=== PATIENT | female | born 1940 | race Caucasian/White ===

== ENCOUNTER 2016-12-22 20:19 | Emergency (ER) | payer MEDICARE ==
[~2016-12-22 20:19] MED LIST: ANTIVERT PO; ASPIRIN ENTERI325 M1 DOB; ASPIRIN81 MG PO; ATIVAN0.5 MG PO; AUGMENTIN PO; BACTROBAN22 GM TOP; CALCIUM; CALCIUM + D 6001 TA1 PO; CALCIUM 600 MG PO; ECOTRIN325 MG; ECOTRIN81 M1 PO; EFFIENT10 MG PO; HYDRALAZINE HC100 MG PO; HYDROCHLOROTHIA25 MG PO; IBUPROFEN PO; LEVOTHYROXINE50 MCG PO; LIPITOR PO; LISINOPRIL PO; MACROBID100 MG PO; METOPROLOL TART25 MG PO; PERCOCET PO; PHENERGAN PO; PLAVIX PO; PREMARIN PO; PREVASTATIN PO; PYRIDIUM PO; SYNTHROID PO; ULTRAM PO; VITAMIN B12-FO1 EACH PO; VITAMIN B6 PO; VITAMIN D1000 UNI1 PO; VITAMIN D3400 UNI1 PO; ZYLOPRIM PO
== END 2016-12-22 21:27 | disposition home or self-care (01) ==
LOC: SED 20:19
DX: S01.511A Laceration without foreign body of lip, initial encounter (principal); I10 Essential (primary) hypertension; Z79.899 Other long term (current) drug therapy; W19.XXXD Unspecified fall, subsequent encounter; Y92.511 Restaurant or cafe as the place of occurrence of the external cause
CPT/HCPCS: 12011; 99283

== ENCOUNTER → 2017-01-20 | Outpatient (CLI) | payer MEDICARE ==
--- NOTE | ~2017-01-20 | MY11 ---
[facility] A Service of [facility] RADIOLOGY TEXT RESULTS PATIENT: HOUSTON AZUL LOCATION: [facility] : 36 UNIT #: [id number] AGE: [address]: Vivi Villanueva APRN SEX: F ORDER DR: [id number] [address] [address] [id number] O MR#: [id number] Acc #: [id number] NAME: HOUSTON AZUL : 1940 SEX: F STUDY DATE/TIME: 01/20/2017 10:10 UNIT: [facility] ROOM: STUDY DESCRIPTION: MY Mammogram Screening Dig Palomo Attending Physician: Vivi Villanueva A.P.R.N. Referring Physician: Vivi Villanueva A.P.R.N. Ordering Physician: Cecelia Not Listed Primary Care Physician: Chelsie Smith M.D. MEDICAL IMAGING REPORT This report is preliminary unless electronic signature is present. EXAM Bilateral digital screening mammogram with CAD device, 01/20/2017. HISTORY Routine screening. FINDINGS Digital imaging of each breast was completed utilizing a two-view examination of each breast in craniocaudal and mediolateral-oblique projections. Review and interpretation of digital mammograms include a second review in conjunction with FDA-approved CAD device. There is a normal parenchymal presentation bilaterally consistent with the patient's age. There are no breast masses imaged and no parenchymal asymmetry is visualized. There are no suspicious microcalcifications and I see no focal architectural disturbance. IMPRESSION Negative screening digital mammogram. One-year followup recommended. Patients over the age of 40 are entered into a reminder system with target due date for the next mammogram. A result letter will also be sent to the patient. BIRADS: 1 Negative Dictated by... Indra Johnson M.D. THIS IS AN ELECTRONICALLY VERIFIED REPORT Indra Johnson M.D. at 01/21/2017 8:27 AM [facility] A Service of [facility] RADIOLOGY TEXT RESULTS PATIENT: HOUSTON AZUL LOCATION: [facility] : 36 UNIT #: [id number] AGE: [address]: Vivi Villanueva APRN SEX: F ORDER DR: Spring TD: 01/20/2017 12:12 JOB #: [id number] MEDICAL IMAGING REPORT Page 1 of 1
== END | disposition home or self-care (01) ==
LOC: SMAM 09:24
DX: Z12.31 Encounter for screening mammogram for malignant neoplasm of breast (principal)
CPT/HCPCS: G0202

== ENCOUNTER → 2017-01-29 | Outpatient (CLI) | payer MEDICARE ==
[2017-01-29 10:43] LABS: BUN/CREATININE RATIO 26.36; CALCIUM SERUM 8.7 mg/dL (8.4-10.2); CREATININE SERUM 2.2 mg/dL (0.6-1.4); GLOM FILT RATE Estimated 20.8 mL/min (>60); POTASSIUM 3.9 mmol/L (3.5-5.1)
[2017-01-29 10:49] LABS: BASOPHIL# 0.1 X10e3 (0-0.3); BASOPHIL% 1.2 % (0-2.5); EOSINOPHIL# 0.2 X10e3 (0-0.7); EOSINOPHIL% 3.1 % (0.0-7.0); HEMATOCRIT 41.3 % (35.0-45.0); HEMOGLOBIN 13.3 gm/dL (12.0-16.0); LYMPHOCYTE# 0.9 X10e3 (1.0-3.5); LYMPHOCYTE% 13.3 % (17.0-45.0); MEAN CELL VOLUME 93.2 FL (83-96); MEAN CORPUSCULAR HGB CONC 32.1 g/dL (30-36); MEAN PLATELET VOLUME 7.9 FL (6.5-11.5); MONOCYTE# 0.7 X10e3 (0-1.0); MONOCYTE% 9.8 % (3.0-12.0); NEUTROPHIL# 5.1 X10e3 (1.5-7.1); NEUTROPHIL% 72.6 % (40-75); PLATELET COUNT 263 X10e3 (140-420); RED BLOOD COUNT 4.43 X10e (3.90-5.30); RED CELL DISTRIBUTION WIDTH 13.4 % (11.0-15.5); WHITE BLOOD COUNT 7.1 X10e3 (4.0-10.5)
[2017-01-29 11:02] LABS: DIFF IND NO
[2017-01-29 11:16] LABS: URINE APPEARANCE CLEAR; URINE BILIRUBIN NEG (NEG); URINE BLOOD NEG (NEG); URINE COLOR YELLOW; URINE GLUCOSE NEG (NORM); URINE KETONE NEG (NEG); URINE LEUKOCYTE ESTERASE TRACE (NEG); URINE NITRATE NEG (NEG); URINE PH 5.5 (5-8); URINE PROTEIN 1+ (NEG); URINE UROBILINOGEN 0.2 MG/DL (NORM)
[2017-01-29 11:20] LABS: MICRO INDICATED? YES; URINE SOURCE CLEAN CATCH
[2017-01-29 11:26] LABS: URINE BACTERIA 1+ (NEG); URINE SQUAMOUS EPITHELIAL CELL FEW /[HPF]
[2017-02-03 18:08] LABS: CALCIUM (PTHINTACT) 9.3 mg/dL (8.6-10.4)
== END | disposition home or self-care (01) ==
LOC: SLAB 09:26
PROVIDERS: Internal Medicine Nephrology
DX: N18.4 Chronic kidney disease, stage 4 (severe) (principal); E21.1 Secondary hyperparathyroidism, not elsewhere classified
CPT/HCPCS: 36415; 80048; 81003; 82306; 82310; 83970; 84100; 85025

== ENCOUNTER → 2017-07-02 | Outpatient (CLI) | payer MEDICARE | END | disposition home or self-care (01) | LOC: SLAB 11:22 | DX: N18.4 Chronic kidney disease, stage 4 (severe) (principal); Z76.82 Awaiting organ transplant status | CPT/HCPCS: 36415 ==